=== PATIENT | female | born 1995 | race Caucasian/White ===

== ENCOUNTER 2023-03-28 22:15 | Inpatient (IN) | payer MEDICAID ==
[~2023-03-28] VITALS: Ht 170.2 cm; Wt 94.6 kg
[2023-03-28 22:15] VITALS: BP 124/64; PULSE 77; RESP 18; TEMP 97.1
[2023-03-29] MEDS ORDERED: QUEtiapine FUMARATE 100 MG TABLET PO PRN (00:15)
[2023-03-29] MEDS: LORazepam 2 MG TABLET PO PRN ×2 (00:48→07:59)
[2023-03-29] MEDS: ZOLPIDEM TARTRATE 10 MG TABLET PO PRN ×2 (00:48→20:53)
[2023-03-29 06:23] LABS: APPEARANCE,URINE CLEAR (CLEAR); BILIRUBIN,URINE NEGATIVE (NEGATIVE); GLUCOSE, URINE (UA) NEGATIVE (NEGATIVE); KETONES,URINE NEGATIVE (NEGATIVE); LEUKOCYTE ESTERASE ,URINE NEGATIVE (NEGATIVE); NITRATE,URINE NEGATIVE (NEGATIVE); OCCULT BLOOD,URINE NEGATIVE (NEGATIVE); PROTEIN,URINE NEGATIVE (NEGATIVE); SPECIFIC GRAVITIY, URINE 1.012 (1.003-1.030); UROBILINOGEN,URINE <=1.0 mg/dL (<=1.0)
[2023-03-29 06:30] LABS: AMPHET/METH SCREEN,URINE NEGATIVE (NEGATIVE); BARBITURATE SCREEN, URINE NEGATIVE (NEGATIVE); BENZODIAZEPINES SCREEN,URINE NEGATIVE (NEGATIVE); CANNABINOID SCREEN,URINE NEGATIVE (NEGATIVE); COCAINE SCREEN,URINE NEGATIVE (NEGATIVE); METHADONE SCREEN, URINE NEGATIVE (NEGATIVE); OPIATE SCREEN,URINE NEGATIVE (NEGATIVE); PHENCYCLIDINE SCREEN,URINE NEGATIVE (NEGATIVE)
[2023-03-29] MEDS ORDERED: CYANOCOBALAMIN 1,000 MCG/ML VIAL IM ONE (09:30)
[2023-03-29] MEDS ORDERED: ACETAMINOPHEN 325 MG TABLET PO PRN (09:30)
[2023-03-29] MEDS ORDERED: LOPERAMIDE HCL 2 MG CAPSULE PO PRN (09:30)
[2023-03-29] MEDS ORDERED: MAGNESIUM HYDROXIDE SUSPENSION 30 ML UDCUP PO PRN (09:30)
[2023-03-29] MEDS ORDERED: PROMETHAZINE HCL 25 MG TABLET PO PRN (09:30)
[2023-03-29] MEDS ORDERED: TUBERCULIN, PURIFIED PROTEIN DERIVATIVE 5 TU/0.1 ML SYRINGE ID ONE (09:30)
[2023-03-29] MEDS ORDERED: MAG HYDROX/AL HYDROX/SIMETH ES 30 ML SUSPENSION UDCUP PO PRN (09:30)
[2023-03-29 11:23] VITALS: BP 115/74; PULSE 111; RESP 18; TEMP 97.2
[2023-03-29] MEDS: DIVALPROEX SODIUM 500 MG ER TABLET PO SCH ×2 (13:04→17:33)
[2023-03-29] MEDS: THIAMINE 100 MG TABLET PO SCH (17:33)
[2023-03-29] MEDS: OLANZapine 5 MG RAPDIS TABLET PO SCH (20:53)
[2023-03-29] MEDS: MELATONIN 5 MG TABLET PO SCH (20:53)
[2023-03-29 21:18] VITALS: BP 143/90; PULSE 98; RESP 19; TEMP 97.2
[2023-03-30] MEDS: LORazepam 2 MG TABLET PO PRN ×2 (00:06→22:35)
[2023-03-30] MEDS ORDERED: HALOPERIDOL LACTATE 5 MG/ML VIAL ONE (07:37)
[2023-03-30] MEDS ORDERED: DiphenhydrAMINE HCL 50 MG/ML VIAL ONE (07:38)
[2023-03-30] MEDS ORDERED: LORazepam 2 MG/ML VIAL ONE (07:38)
[2023-03-30] MEDS ORDERED: HALOPERIDOL LACTATE 5 MG/ML VIAL IM ONE (07:45)
[2023-03-30] MEDS ORDERED: LORazepam 2 MG/ML VIAL IM ONE (07:45)
[2023-03-30] MEDS ORDERED: DiphenhydrAMINE HCL 50 MG/ML VIAL IM ONE (07:45)
[2023-03-30 08:25] LABS: CHOL/HDL RATIO 3.8 (3.9-5.7); FREE T4 (FREE THYROXINE) 0.98 ng/dL (0.76-1.46); THYROID STIMULATING HORMONE 4.7 uIU/mL (0.36-3.74)
[2023-03-30 08:35] VITALS: RESP 18
[2023-03-30] MEDS: NALTREXONE HCL 50 MG TABLET PO SCH (08:54)
[2023-03-30] MEDS: DIVALPROEX SODIUM 500 MG ER TABLET PO SCH ×3 (08:55→16:51)
[2023-03-30] MEDS: MULTIVITAMINS WITH MINERALS, THERAPEUTIC TABLET PO SCH (08:56)
[2023-03-30] MEDS: OMEGA-3/DHA/EPA/FISH OIL 1,000 MG CAPSULE PO SCH (08:56)
[2023-03-30] MEDS: FOLIC ACID 1 MG TABLET PO SCH (08:56)
[2023-03-30] MEDS: THIAMINE 100 MG TABLET PO SCH ×2 (08:56→16:51)
[2023-03-30 11:06] LABS: HEMOGLOBIN A1C 5.1 % (3.8-5.6)
[2023-03-30] MEDS: ZOLPIDEM TARTRATE 10 MG TABLET PO PRN (20:52)
[2023-03-30] MEDS: OLANZapine 5 MG RAPDIS TABLET PO SCH (20:52)
[2023-03-30] MEDS: MELATONIN 5 MG TABLET PO SCH (20:52)
[2023-03-30 21:29] VITALS: BP 140/85; PULSE 105; RESP 18; TEMP 97.2
[2023-03-30] MEDS: OLANZapine 5 MG RAPDIS TABLET PO PRN (22:36)
[2023-03-31] MEDS: HydrOXYzine PAMOATE 50 MG CAPSULE PO PRN (02:46)
[2023-03-31] MEDS ORDERED: LORazepam 2 MG/ML VIAL ONE (05:37)
[2023-03-31] MEDS ORDERED: HALOPERIDOL LACTATE 5 MG/ML VIAL ONE (05:37)
[2023-03-31] MEDS ORDERED: DiphenhydrAMINE HCL 50 MG/ML VIAL ONE (05:39)
[2023-03-31] MEDS ORDERED: DiphenhydrAMINE HCL 50 MG/ML VIAL IM ONE (06:00)
[2023-03-31] MEDS ORDERED: HALOPERIDOL LACTATE 5 MG/ML VIAL IM ONE (06:00)
[2023-03-31] MEDS ORDERED: LORazepam 2 MG/ML VIAL IM ONE (06:00)
[2023-03-31] MEDS: NALTREXONE HCL 50 MG TABLET PO SCH (08:20)
[2023-03-31] MEDS: OMEGA-3/DHA/EPA/FISH OIL 1,000 MG CAPSULE PO SCH (08:21)
[2023-03-31] MEDS: MULTIVITAMINS WITH MINERALS, THERAPEUTIC TABLET PO SCH (08:21)
[2023-03-31] MEDS: FOLIC ACID 1 MG TABLET PO SCH (08:21)
[2023-03-31] MEDS: THIAMINE 100 MG TABLET PO SCH ×2 (08:22→16:28)
[2023-03-31] MEDS: DIVALPROEX SODIUM 500 MG ER TABLET PO SCH ×3 (08:22→16:28)
[2023-03-31] MEDS: OLANZapine 5 MG RAPDIS TABLET PO PRN ×2 (08:24→16:28)
[2023-03-31 08:46] VITALS: BP 148/83; PULSE 102; RESP 18; TEMP 97.6
[2023-03-31 20:00] VITALS: BP 121/85; PULSE 96; RESP 19; TEMP 97.6
[2023-03-31] MEDS: OLANZapine 10 MG RAPDIS TABLET PO SCH (20:45)
[2023-03-31] MEDS: MELATONIN 5 MG TABLET PO SCH (20:46)
[2023-03-31] MEDS: ZOLPIDEM TARTRATE 10 MG TABLET PO PRN (21:50)
[2023-03-31] MEDS: NICOTINE 21 MG/24 HOUR PATCH TD PRN (22:12)
[2023-04-01] MEDS: HydrOXYzine PAMOATE 50 MG CAPSULE PO PRN ×3 (02:39→16:10)
[2023-04-01] MEDS: LORazepam 2 MG TABLET PO PRN ×2 (02:39→10:34)
[2023-04-01] MEDS: OMEGA-3/DHA/EPA/FISH OIL 1,000 MG CAPSULE PO SCH (08:02)
[2023-04-01] MEDS: OLANZapine 5 MG RAPDIS TABLET PO PRN ×2 (08:03→12:28)
[2023-04-01] MEDS: FOLIC ACID 1 MG TABLET PO SCH (08:03)
[2023-04-01] MEDS: NALTREXONE HCL 50 MG TABLET PO SCH (08:04)
[2023-04-01] MEDS: DIVALPROEX SODIUM 500 MG ER TABLET PO SCH ×3 (08:04→16:10)
[2023-04-01] MEDS: THIAMINE 100 MG TABLET PO SCH ×2 (08:04→16:10)
[2023-04-01] MEDS: MULTIVITAMINS WITH MINERALS, THERAPEUTIC TABLET PO SCH (08:05)
[2023-04-01 09:05] VITALS: BP 132/80; PULSE 73; RESP 18; TEMP 97.9
[2023-04-01 20:01] VITALS: BP 152/85; PULSE 97; RESP 20; TEMP 97.2
[2023-04-01] MEDS: OLANZapine 10 MG RAPDIS TABLET PO SCH (20:59)
[2023-04-01] MEDS: ZOLPIDEM TARTRATE 10 MG TABLET PO PRN (20:59)
[2023-04-01] MEDS: MELATONIN 5 MG TABLET PO SCH (20:59)
[2023-04-01] MEDS ORDERED: DiphenhydrAMINE HCL 50 MG/ML VIAL ONE (22:47)
[2023-04-01] MEDS ORDERED: HALOPERIDOL LACTATE 5 MG/ML VIAL ONE (22:48)
[2023-04-01] MEDS ORDERED: LORazepam 2 MG/ML VIAL ONE (22:49)
[2023-04-01] MEDS ORDERED: HALOPERIDOL LACTATE 5 MG/ML VIAL IM ONE (23:00)
[2023-04-01] MEDS ORDERED: DiphenhydrAMINE HCL 50 MG/ML VIAL IM ONE (23:00)
[2023-04-01] MEDS ORDERED: LORazepam 2 MG/ML VIAL IM ONE (23:00)
[2023-04-02 08:07] VITALS: BP 117/74; PULSE 107; RESP 18; TEMP 97
[2023-04-02] MEDS: FOLIC ACID 1 MG TABLET PO SCH (08:09)
[2023-04-02] MEDS: THIAMINE 100 MG TABLET PO SCH ×2 (08:09→17:01)
[2023-04-02] MEDS: NALTREXONE HCL 50 MG TABLET PO SCH (08:09)
[2023-04-02] MEDS: OLANZapine 5 MG RAPDIS TABLET PO PRN ×2 (08:09→13:47)
[2023-04-02] MEDS: OMEGA-3/DHA/EPA/FISH OIL 1,000 MG CAPSULE PO SCH (08:09)
[2023-04-02] MEDS: MULTIVITAMINS WITH MINERALS, THERAPEUTIC TABLET PO SCH (08:11)
[2023-04-02] MEDS: DIVALPROEX SODIUM 500 MG ER TABLET PO SCH ×3 (08:11→16:01)
[2023-04-02] MEDS: HydrOXYzine PAMOATE 50 MG CAPSULE PO PRN (09:43)
[2023-04-02] MEDS: NICOTINE 21 MG/24 HOUR PATCH TD PRN (14:39)
[2023-04-02] MEDS: LORazepam 2 MG TABLET PO PRN ×2 (16:01→23:45)
[2023-04-02 20:10] VITALS: BP 111/55; PULSE 98; RESP 18; TEMP 97.6
[2023-04-02] MEDS: OLANZapine 10 MG RAPDIS TABLET PO SCH (20:29)
[2023-04-02] MEDS: MELATONIN 5 MG TABLET PO SCH (20:29)
[2023-04-02] MEDS: ZOLPIDEM TARTRATE 10 MG TABLET PO PRN (20:29)
[2023-04-03] MEDS ORDERED: HALOPERIDOL LACTATE 5 MG/ML VIAL IM ONE ×2 (00:15→23:45)
[2023-04-03] MEDS ORDERED: DiphenhydrAMINE HCL 50 MG/ML VIAL IM ONE ×2 (00:15→23:45)
[2023-04-03] MEDS ORDERED: LORazepam 2 MG/ML VIAL IM ONE ×2 (00:15→23:45)
[2023-04-03] MEDS: MULTIVITAMINS WITH MINERALS, THERAPEUTIC TABLET PO SCH (07:55)
[2023-04-03] MEDS: NALTREXONE HCL 50 MG TABLET PO SCH (07:55)
[2023-04-03] MEDS: OMEGA-3/DHA/EPA/FISH OIL 1,000 MG CAPSULE PO SCH (07:55)
[2023-04-03] MEDS: DIVALPROEX SODIUM 500 MG ER TABLET PO SCH ×3 (07:55→16:04)
[2023-04-03] MEDS: OLANZapine 5 MG RAPDIS TABLET PO PRN ×2 (07:55→12:13)
[2023-04-03] MEDS: FOLIC ACID 1 MG TABLET PO SCH (07:55)
[2023-04-03] MEDS: THIAMINE 100 MG TABLET PO SCH ×2 (07:55→16:04)
[2023-04-03 08:01] VITALS: BP 130/70; PULSE 83; RESP 16; TEMP 97.1
[2023-04-03] MEDS: LORazepam 2 MG TABLET PO PRN ×2 (16:04→20:20)
[2023-04-03 20:17] VITALS: BP 115/87; PULSE 110; RESP 18; TEMP 98.1
[2023-04-03] MEDS: OLANZapine 10 MG RAPDIS TABLET PO SCH (20:20)
[2023-04-03] MEDS: MELATONIN 5 MG TABLET PO SCH (20:20)
[2023-04-03] MEDS: ZOLPIDEM TARTRATE 10 MG TABLET PO PRN (21:47)
[2023-04-03] MEDS ORDERED: HALOPERIDOL LACTATE 5 MG/ML VIAL ONE (23:10)
[2023-04-03] MEDS ORDERED: LORazepam 2 MG/ML VIAL ONE (23:10)
[2023-04-03] MEDS ORDERED: DiphenhydrAMINE HCL 50 MG/ML VIAL ONE (23:10)
[2023-04-04] MEDS: OLANZapine 5 MG RAPDIS TABLET PO PRN (03:44)
[2023-04-04] MEDS: LORazepam 2 MG TABLET PO PRN ×2 (03:44→19:43)
[2023-04-04] MEDS: GuaiFENesin/D-METHORPHAN [SUGAR-FREE] 200-20MG/10 ML SYRUP UDCUP PO PRN (04:22)
[2023-04-04] MEDS: MULTIVITAMINS WITH MINERALS, THERAPEUTIC TABLET PO SCH (08:18)
[2023-04-04] MEDS: FOLIC ACID 1 MG TABLET PO SCH (08:19)
[2023-04-04] MEDS: OMEGA-3/DHA/EPA/FISH OIL 1,000 MG CAPSULE PO SCH (08:19)
[2023-04-04] MEDS: THIAMINE 100 MG TABLET PO SCH ×2 (08:19→17:08)
[2023-04-04] MEDS: NALTREXONE HCL 50 MG TABLET PO SCH (08:20)
[2023-04-04] MEDS: DIVALPROEX SODIUM 500 MG ER TABLET PO SCH ×3 (08:20→17:08)
[2023-04-04 08:41] VITALS: BP 115/65; PULSE 85; RESP 19; TEMP 97.6
[2023-04-04] MEDS: NICOTINE 21 MG/24 HOUR PATCH TD PRN (19:55)
[2023-04-04] MEDS: MELATONIN 5 MG TABLET PO SCH (20:34)
[2023-04-04] MEDS: OLANZapine 10 MG RAPDIS TABLET PO SCH (20:34)
[2023-04-04] MEDS: ZOLPIDEM TARTRATE 10 MG TABLET PO PRN (21:23)
[2023-04-04 21:31] VITALS: BP 112/76; PULSE 82; RESP 18; TEMP 97.8
[2023-04-04 22:38] VITALS: BP 115/79; PULSE 85; RESP 17; TEMP 97.5
[2023-04-04 22:40] VITALS: BP 118/78; PULSE 86; RESP 18; TEMP 97.5
[2023-04-04 23:40] VITALS: RESP 18
[2023-04-05] MEDS: LITHIUM CARBONATE 300 MG CAPSULE PO SCH ×3 (06:33→16:17)
[2023-04-05] MEDS: OMEGA-3/DHA/EPA/FISH OIL 1,000 MG CAPSULE PO SCH (08:13)
[2023-04-05] MEDS: DIVALPROEX SODIUM 500 MG ER TABLET PO SCH ×2 (08:14→20:32)
[2023-04-05] MEDS: FOLIC ACID 1 MG TABLET PO SCH (08:14)
[2023-04-05] MEDS: THIAMINE 100 MG TABLET PO SCH ×2 (08:14→16:17)
[2023-04-05] MEDS: NALTREXONE HCL 50 MG TABLET PO SCH (08:14)
[2023-04-05] MEDS: OLANZapine 5 MG RAPDIS TABLET PO PRN ×2 (08:14→16:17)
[2023-04-05] MEDS: MULTIVITAMINS WITH MINERALS, THERAPEUTIC TABLET PO SCH (08:14)
[2023-04-05] MEDS: LORazepam 2 MG TABLET PO PRN ×3 (08:14→20:32)
[2023-04-05] MEDS: NICOTINE 21 MG/24 HOUR PATCH TD PRN (08:15)
[2023-04-05 08:47] VITALS: BP 136/70; PULSE 86; RESP 17; TEMP 97.8
[2023-04-05] MEDS: MELATONIN 5 MG TABLET PO SCH (20:03)
[2023-04-05] MEDS: OLANZapine 10 MG RAPDIS TABLET PO SCH (20:33)
[2023-04-05] MEDS ORDERED: QUEtiapine FUMARATE 200 MG TABLET PO SCH (21:00)
[2023-04-05] MEDS: ZOLPIDEM TARTRATE 10 MG TABLET PO PRN (21:13)
[2023-04-05 21:36] VITALS: BP 106/57; PULSE 84; RESP 18; TEMP 97.8
[2023-04-06] MEDS: LITHIUM CARBONATE 300 MG CAPSULE PO SCH ×3 (06:33→17:16)
[2023-04-06] MEDS: NALTREXONE HCL 50 MG TABLET PO SCH (08:27)
[2023-04-06] MEDS: LORazepam 2 MG TABLET PO PRN (08:27)
[2023-04-06] MEDS: GuaiFENesin/D-METHORPHAN [SUGAR-FREE] 200-20MG/10 ML SYRUP UDCUP PO PRN (08:27)
[2023-04-06] MEDS: FOLIC ACID 1 MG TABLET PO SCH (08:27)
[2023-04-06] MEDS: OMEGA-3/DHA/EPA/FISH OIL 1,000 MG CAPSULE PO SCH (08:27)
[2023-04-06] MEDS: MULTIVITAMINS WITH MINERALS, THERAPEUTIC TABLET PO SCH (08:27)
[2023-04-06] MEDS: THIAMINE 100 MG TABLET PO SCH ×2 (08:27→17:16)
[2023-04-06] MEDS: NICOTINE 21 MG/24 HOUR PATCH TD PRN (08:28)
[2023-04-06] MEDS: OLANZapine 5 MG RAPDIS TABLET PO PRN (08:28)
[2023-04-06 09:10] VITALS: BP 116/74; PULSE 101; RESP 17; TEMP 97.8
[2023-04-06 20:12] VITALS: BP 148/98; PULSE 88; RESP 18; TEMP 97.2
[2023-04-06] MEDS ORDERED: MELA5TAB40 PO (20:26)
[2023-04-06] MEDS ORDERED: DIVA500T69 PO (20:26)
[2023-04-06] MEDS ORDERED: NALT50TA PO (20:26)
[2023-04-06] MEDS ORDERED: QUET200T30 PO (20:26)
[2023-04-06] MEDS ORDERED: OMEG-135 PO (20:26)
[2023-04-06] MEDS ORDERED: LITH300C3 PO (20:26)
[2023-04-06] MEDS: DIVALPROEX SODIUM 500 MG ER TABLET PO SCH (20:39)
[2023-04-06] MEDS: MELATONIN 5 MG TABLET PO SCH (20:39)
[2023-04-06] MEDS: OLANZapine 10 MG RAPDIS TABLET PO SCH (20:40)
[2023-04-06] MEDS ORDERED: QUEtiapine FUMARATE 200 MG TABLET PO SCH (21:00)
[2023-04-07] MEDS: ZOLPIDEM TARTRATE 10 MG TABLET PO PRN (00:08)
[2023-04-07] MEDS: LORazepam 2 MG TABLET PO PRN ×2 (00:08→08:26)
[2023-04-07] MEDS: THIAMINE 100 MG TABLET PO SCH (08:22)
[2023-04-07] MEDS: MULTIVITAMINS WITH MINERALS, THERAPEUTIC TABLET PO SCH (08:22)
[2023-04-07] MEDS: NALTREXONE HCL 50 MG TABLET PO SCH (08:22)
[2023-04-07] MEDS: FOLIC ACID 1 MG TABLET PO SCH (08:22)
[2023-04-07] MEDS: LITHIUM CARBONATE 300 MG CAPSULE PO SCH (08:22)
[2023-04-07] MEDS: OMEGA-3/DHA/EPA/FISH OIL 1,000 MG CAPSULE PO SCH (08:23)
[2023-04-07] MEDS: OLANZapine 5 MG RAPDIS TABLET PO PRN (08:26)
[2023-04-07 08:41] VITALS: BP 139/80; PULSE 90; RESP 17; TEMP 98
[2023-04-07] MEDS: NICOTINE 21 MG/24 HOUR PATCH TD PRN (10:01)
== END 2023-04-07 14:38 | disposition home or self-care (01) | DRG 753 ==
LOC: 3EC 22:15
PROVIDERS: ADMIT Psychiatry & Neurology Psychiatry; ATTEND Psychiatry & Neurology Psychiatry
DX: F31.2 Bipolar disorder, current episode manic severe with psychotic features (principal); R45.851 Suicidal ideations; D64.9 Anemia, unspecified; F14.90 Cocaine use, unspecified, uncomplicated; J45.909 Unspecified asthma, uncomplicated; E66.9 Obesity, unspecified; Z68.32 Body mass index [BMI] 32.0-32.9, adult
CPT/HCPCS: 80061; 80164; 80307; 81003; 83036; 84439; 84443; 84703; 86592; J1200; J1630; J2060; J3420; Q9967

== ENCOUNTER 2023-04-08 21:09 | Emergency (ER) | payer MEDICAID ==
[~2023-04-08] VITALS: Ht 170.2 cm; Wt 99.1 kg
[~2023-04-08 21:09] MED LIST: DIVA500T69 PO; LITH300C3 PO; MELA5TAB40 PO; NALT50TA PO; OMEG-135 PO; QUET200T30 PO
[2023-04-08 22:42] VITALS: BP 140/98; PULSE 106; RESP 17; TEMP 98.3
[2023-04-08] MEDS ORDERED: LORazepam 2 MG/ML VIAL IM ONE (23:00)
[2023-04-08] MEDS ORDERED: DiphenhydrAMINE HCL 50 MG/ML VIAL IM ONE (23:00)
[2023-04-08] MEDS ORDERED: HALOPERIDOL LACTATE 5 MG/ML VIAL IM ONE (23:00)
[2023-04-08 23:08] LABS: BASOPHILS % (AUTO) 0.3 % (0.0-2.0); EOSINOPHILS % (AUTO) 0.2 % (1.0-6.0); HEMATOCRIT 39.9 % (36-46); HEMOGLOBIN 12.9 g/dL (12.0-16.0); LYMPHOCYTES # (AUTO) 1.3 K/uL (1.0-4.8); LYMPHOCYTES % (AUTO) 9.9 % (22.0-44.0); MEAN CORPUSCULAR HEMOGLOBIN 29.7 pg (26.0-34.0); MEAN CORPUSCULAR HGB CONC 32.3 G/dL (31.0-37.0); MEAN CORPUSCULAR VOLUME 92 fL (80-100); MONOCYTES % (AUTO) 7.5 % (2.0-9.0); NEUTROPHILS # (AUTO) 10.8 K/uL (1.8-7.7); NEUTROPHILS % (AUTO) 82.1 % (40.0-70.0); PLATELET COUNT (AUTO) 322 K/uL (150-450); RED BLOOD CELL COUNT(AUTO) 4.34 MIL/uL (4.00-5.20); RED CELL DISTRIBUTION WIDTH 13.3 % (11.5-14.5)
[2023-04-08 23:25] LABS: ALANINE AMINOTRANSFERASE 16 U/L (12-78); ALBUMIN 3.9 g/dL (3.4-5.0); ALKALINE PHOSPHATASE 63 U/L (46-116); ANION GAP 10 mmol/L (8-16); ASPARTATE AMINOTRANSFERASE 12 U/L (15-37); BILIRUBIN,TOTAL 0.2 mg/dL (0.1-1.0); CALCIUM, TOTAL 9.1 mg/dL (8.8-10.5); CARBON DIOXIDE 28 mmol/L (22-29); CHLORIDE 99 mmol/L (98-107); CREATININE 0.69 mg/dL (0.60-1.30); GLOMERULAR FILTR. RATE CALC > 60 mL/min (>60); GLUCOSE,RANDOM 105 mg/dL (70-110); POTASSIUM 3.7 mmol/L (3.5-5.1); SODIUM SERUM 137 mmol/L (136-145); TOTAL PROTEIN, SERUM 7.4 g/dL (6.4-8.2)
[2023-04-08 23:50] LABS: AMPHET/METH SCREEN,URINE NEGATIVE (NEGATIVE); BARBITURATE SCREEN, URINE NEGATIVE (NEGATIVE); BENZODIAZEPINES SCREEN,URINE NEGATIVE (NEGATIVE); CANNABINOID SCREEN,URINE POSITIVE (NEGATIVE); COCAINE SCREEN,URINE NEGATIVE (NEGATIVE); METHADONE SCREEN, URINE NEGATIVE (NEGATIVE); OPIATE SCREEN,URINE NEGATIVE (NEGATIVE); PHENCYCLIDINE SCREEN,URINE NEGATIVE (NEGATIVE)
[2023-04-09] MEDS ORDERED: QUEtiapine FUMARATE 100 MG TABLET PO ONE (01:00)
[2023-04-09 07:40] LABS: COVID AG,FIA SOURCE NASOPHARYNGEAL
[2023-04-09] MEDS ORDERED: DIVALPROEX SODIUM 500 MG ER TABLET PO ONE (07:45)
[2023-04-09] MEDS ORDERED: LITHIUM CARBONATE 300 MG ER TABLET PO ONE (07:45)
== END 2023-04-09 10:23 | disposition home or self-care (01) ==
LOC: EMS 21:09
DX: F25.0 Schizoaffective disorder, bipolar type (principal); F41.9 Anxiety disorder, unspecified; F12.90 Cannabis use, unspecified, uncomplicated; Z20.822 Contact with and (suspected) exposure to COVID-19
CPT/HCPCS: 99284; 87426; 80053; 85025; 36415; 96372; 80307 ×2; J1200; J1630; J2060; G0480